=== PATIENT | female | born 1960 | race Caucasian/White ===

== ENCOUNTER 2017-10-14 13:13 | Observation (INO) | END 2017-10-15 19:50 | disposition home or self-care (01) ==

== ENCOUNTER 2018-08-02 10:02 | Emergency (ER) | payer OTHER ==
[~2018-08-02] VITALS: Ht 165.1 cm; Wt 73.8 kg
[~2018-08-02 10:02] MED LIST: ASPI-903 PO; ATOR40TA68 PO; BUPR-75 PO; CALC500T91 PO; DIPH25TA27 PO; HYDR-4011 PO; OMEP20CA16 PO; TOPI100T11 PO; TRA100 PO; ZIPR40CA2 PO
[2018-08-02 10:32] VITALS: Ht 165.1 cm; Wt 73.8 kg
[2018-08-02] MEDS ORDERED: ALBUTEROL/IPRATROPIUM (NEB) 3 ML AMP HHN STA (11:52)
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
[2018-08-02] MEDS ORDERED: AZIT500T3 PO (13:22)
[2018-08-02] MEDS ORDERED: PRED20TA PO (13:22)
[2018-08-02] MEDS ORDERED: predniSONE 20 MG TAB PO ONE (13:30)
[2018-08-02] MEDS ORDERED: SULF1TAB31 PO (13:40)
[2018-08-02 13:50] VITALS: BP 132/74; PULSE 86; RESP 18
== END 2018-08-02 13:54 | disposition home or self-care (01) ==
LOC: FTE 10:02
DX: J45.901 Unspecified asthma with (acute) exacerbation (principal); Z85.3 Personal history of malignant neoplasm of breast; Z79.82 Long term (current) use of aspirin
CPT/HCPCS: 71046; 81003; 94664; J7512; Z7502; Z7610